=== PATIENT | female | born 1990 | race Caucasian/White ===

== ENCOUNTER 2017-04-02 17:34 | Emergency (ER) | payer BC, SELFPAY | END 2017-04-02 19:10 | disposition home or self-care (01) | PROVIDERS: Emergency Provider Nurse Practitioner Family; Visit Provider Nurse Practitioner Family | DX: J20.9 Acute bronchitis, unspecified (principal); F17.210 Nicotine dependence, cigarettes, uncomplicated; K21.9 Gastro-esophageal reflux disease without esophagitis; Z88.0 Allergy status to penicillin | CPT/HCPCS: 87804; 96372; 99201 ==

== ENCOUNTER → 2017-05-15 10:46 | Outpatient (CLI) | payer BC, SELFPAY ==
--- NOTE | 2017-05-15 11:02 | XR_ITS ---
XR knee RT 4V HISTORY: ITS.REASON: knee pain ORDERING PHYSICIAN: Nadeen Mendoza PATIENT AGE: 26 years COMPARISON: None FINDINGS: No fracture or dislocation. No lytic or blastic change. Normal mineralization. No significant arthritic changes evident. There is a small area of sclerosis involving the distal shaft of the femur medially which could be due to small bone island. This measures 8 mm. IMPRESSION: 1. No acute finding. 2. Possible small bone island femur medially at the distal diaphysis
[2017-05-15 11:07] LABS: Basophils # 0.1 K/mm3 (0-0.2); Basophils % 0.8 % (0.1-2.0); Eosinophils # 0.4 K/mm3 (0.0-0.4); Eosinophils % 6.2 % (0.1-12.0); Hemoglobin 15.7 g/dL (12.2-16.2); Lymphocytes # 2.2 K/mm3 (0.7-4.5); Lymphocytes % 31.1 K/mm3 (10-50); Mean Corpuscular HGB Conc 33.5 g/dL (31.8-35.4); Mean Corpuscular Hemoglobin 29.2 pg (27.0-31.2); Mean Corpuscular Volume 87.1 fl (81-99); Mean Platelet Volume 7.5 fl (7.4-10.4); Monocytes # 0.4 K/mm3 (0.1-1.0); Monocytes % 5.1 % (1.7-9.3); Neutrophils % 56.9 % (37.0-80.0); Platelet Count 278 K/mm3 (142-424); Red Blood Count 5.39 M/mm3 (4.20-5.40); Red Cell Distribution Width 12.1 % (11.5-17.5)
[2017-05-15 13:10] LABS: Alanine Aminotransferase 25 U/L (12-78); Albumin Level 4.2 gm/dL (3.4-5.0); Albumin/Globulin Ratio 1.2 (1.1-1.8); Alkaline Phosphatase 77 U/L (46-116); Aspartate Amino Transferase 15 U/L (15-37); Bilirubin,Total 0.3 mg/dL (0.2-1.0); Blood Urea Nitrogen 8 mg/dL (7-18); Calcium 8.9 mg/dL (8.5-10.1); Carbon Dioxide 26 mmol/L (21.0-32.0); Chloride 104 mmol/L (98-107); Chol/HDL Ratio 4.4 (1-3.5); Cholesterol 233 mg/dL (140-200); Creatinine,Serum 0.71 mg/dL (0.55-1.02); Estimated Glomerular Filt Rate 100 ml/min (>60); GFR (African American) 120 ML/MIN (>60); Globulin 3.4 gm/dl (1.3-3.2); Glucose 86 mg/dL (74-106); HDL Cholesterol 53 mg/dL (29-89); LDL Cholesterol 159 mg/dL (0-130); Sodium 142 mmol/L (136-145); T4 (Thyroxine) 11.6 ug/dl (4.7-13.3); Thyroid Stimulating Hormone 1.27 uIU/ml (0.358-3.740); Total Protein,Serum 7.6 gm/dL (6.4-8.2); Triglycerides 103 mg/dL (30-200); VLDL Cholesterol 21 mg/dL (0-40)
[2017-05-16 09:17] LABS: Hep A Ab, IgM Negative (Negative); Hepatitis B Core Antibody IgM Negative (Negative); Hepatitis B Surface Antigen Negative (Negative)
[2017-05-16 17:10] LABS: Vitamin D 25 Hydroxy 30.8 ng/mL (30.0-100.0)
[2017-05-16 17:11] LABS: Hepatitis C Antibody <0.1 s/co ratio (0.0-0.9)
== END ==
PROVIDERS: PCP Nurse Practitioner Family; Visit Provider Nurse Practitioner Family
DX: R53.83 Other fatigue (principal); Z20.5 Contact with and (suspected) exposure to viral hepatitis; M25.561 Pain in right knee; Z86.79 Personal history of other diseases of the circulatory system
CPT/HCPCS: 36415; 73564; 80053; 80061; 80074; 82652; 84436; 84443; 85025

== ENCOUNTER → 2017-06-09 08:13 | Outpatient (CLI) | payer BC, SELFPAY ==
--- NOTE | 2017-06-09 | CA_ITS ---
PROCEDURE: 2-D M-mode and color Doppler study INDICATIONS FOR THE TEST: Chest pain X COPD Heart Murmur Tobacco SmokingX Palpitations Fatigue Syncope Edema Hypertension Diabetes Mellitus Rheumatic Fever SOBXDOEXObesity Hyperlipidemia Family History HDX Additional History MVP,DIZZINESS PATIENT INFORMATION HEIGHT: 69 WEIGHT:127 GENDER: Female B/P:116/80 2-D/M-MODE INTERPRETATION: 2-D MEASUREMENTS OBSERVED VALUES IN CMS Right Ventricular Dimension (RVDd) 2.3 Interventricular Septum (Thickness)(IVsd) .7 Left Ventricular Internal Dimensions(LVIDd) 4.4 Left Ventricular Posterior Wall (Thickness)(LVPWd) .8 Aortic Root 2.6 Aortic Cusp Separation 2.0 Left Atrial Dimensions (LAD) 2.4 2D 1. Left atrium is normal size, left ventricle is normal size, there is no concentric left ventricular hypertrophy, visually estimated ejection fraction 55% with no obvious regional wall motion abnormality. 2. The right atrium and right ventricle are normal size and contractility. 3. The aortic, mitral and tricuspid valve are grossly normal. 4. The pulmonic valve is poorly visualized 5. No significant pericardial effusion noted DOPPLER INTERROGATION: Doppler interrogation of the aortic, mitral and tricuspid valvular presence of mild mitral and tricuspid regurgitation, tricuspid and jet velocity insufficient for calculation of the right ventricular systolic pressure. Diastolic parameters are within normal range. CONCLUSION: 1. Normal left ventricular size, preserved left ventricular systolic function, visually estimated ejection fraction 55% with no obvious regional wall motion abnormality, diastolic parameters are within normal range. 2. Mild mitral and tricuspid regurgitation 3. No significant pericardial effusion noted.
== END ==
PROVIDERS: PCP Nurse Practitioner Family; Visit Provider Internal Medicine Cardiovascular Disease
DX: F17.200 Nicotine dependence, unspecified, uncomplicated (principal); Z82.49 Family history of ischemic heart disease and other diseases of the circulatory system; R00.0 Tachycardia, unspecified; I34.1 Nonrheumatic mitral (valve) prolapse; R06.09 Other forms of dyspnea; R07.89 Other chest pain; R07.8 Other chest pain
CPT/HCPCS: 93306

== ENCOUNTER 2017-06-12 17:41 | Emergency (ER) | payer BC, SELFPAY ==
[2017-06-12 18:23] VITALS: BP 130/84; PULSE 86; RESP 18; TEMP 37.1; O2SAT 99; BMI 18.7
[2017-06-12 18:31] LABS: UTC Strep Screen (Rapid) Negative (Negative)
--- NOTE | 2017-06-12 19:48 | HMH.EDUTC ---
[facility] [place] Impression: Viral pharyngitis Disposition: Home, Self-Care Condition on Discharge: Good Instructions: DI for Viral Pharyngitis Additional Instructions: * No sign of bacterial infection. Likely viral. Virus can take 7-14 days to run their course * Monitor Temp. Follow up if fever develops * Encourage fluids, water, gatorade, powerade, pedialyte if infant/toddler/child * warm salt water gargles * warm fluids * sore throat lozenges * sleep elevated * humidifier/vaporizer * * Your throat swab was sent for culture. Those results are typically sent to your primary care. Be sure to follow up in 2-3 days if no improvement so they can review those results and treat if necessary. If you don't have primary care, I recommend you get one but in the mean time, you will have to return to a walk in clinic. Referrals: Nadeen Mendoza APRN [Primary Care Provider] - (Follow up IMMEDIATELY for new or worsening symptoms OR no noticeable improvement over the next 48-72 hours. 911 for difficulty breathing or swallowing.) Time of Disposition: 19:52 Medical Decision Making Vital Signs: 06/12/17 18:23 Temperature 98.7 F Temperature Source Temporal Artery Scan Pulse Rate [Brachial] 86 Respiratory Rate 18 Blood Pressure [Right Arm] 130/84 Blood Pressure Mean [Right Arm] 99 Blood Pressure Source [Right Arm] Automatic Cuff Blood Pressure Position [Right Arm] Sitting 02 Sat by Pulse Oximetry 99 Oxygen Delivery Method Room Air - Lab Data Lab results reviewed: Yes: I reviewed the patient's lab results. Lab Results 06/12/17 18:26: Strep Scn Rapid Clinic Negative Orders (Tests/Meds): ORDERS Category Date Time Status Strep Screen Confirmation Stat Micro 06/12/17 18:26 Received - Bry Inquiry Pt receiving controlled substance: No [facility] [place] - General Stated complaint: sore throat,cough Time Seen by Provider: 06/12/17 19:48 Mode of Arrival: Ambulatory Source of Information: Patient Limitations: No Limitations Description of Symptoms (Recalled from Triage Doc. by RN): SORE THROAT AND HEADACHE SINCE LAST NIGHT HEENT Symptoms (Recalled from RN notes): Yes Resp Symptoms (Recalled from RN notes): No Skin Symptoms (Recalled from RN notes): No MS Symptoms (Recalled from RN notes): No Functional Status (Recalled from RN notes): NA - History of Present Illness Provider Complaint: c/o ST and [employer] since last night. Wants to r/o strep because daughter with it. No fever. No treatment before arrival. - Related Data Home Medications Medication Instructions Recorded Confirmed L norgest/E estradiol-E estrad 1 tab PO DAILY tab 05/15/17 0.10 mg-20 mcg (84)/10 mcg(7) tabs,3mos hydroxyzine HCl 10 mg tablet 10 mg PO Q6H PRN tab 05/15/17 Previous Rx's Medication Instructions Recorded bisoprolol fumarate 5 mg tablet 2.5 mg PO DAILY #30 tab 05/29/17 omeprazole 40 mg capsule,delayed 40 mg PO DAILY #30 cap 05/29/17 release Allergies Allergy/AdvReac Type Severity Reaction Status Date / Time azithromycin [From ZITHROMAX] Allergy Unknown Verified 05/15/17 09:31 Penicillins [PENICILLINS] Allergy Unknown Verified 05/15/17 09:31 - Worker's Comp Is this a Worker's Comp case?: No [facility] History I have reviewed the patient's past medical history: Yes Medical History: Reports:: Anxiety, Arrhythmia (tachycardia), Gastroesophageal Reflux Disease(GERD) Other Medical History: Reports: Thyroid Disease, Other Laterality Cases: Bilateral: Myringotomy (Ear Tubes) Other Surgeries: Yes: Colonoscopy, EGD, Other Amputation: No Fractures: No - Social History Smoking Status: Current every day smoker Tobacco Type: cigarettes # Packs/Day (cigarettes): 1 Alcohol Intake: never Alcohol Intake Frequency:: holidays/special occasions only Substance Use Type: denies use - Psychiatric History Expresses thoughts of harming self/others: None Suicide Plan Description: No Plan Pschychiatric History:: R
--- NOTE | 2017-06-12 19:52 | ED_ITS ---
[facility] [place] Clinical Impression: Viral pharyngitis Disposition: Home, Self-Care Condition on Discharge: Good Instructions: DI for Viral Pharyngitis Additional Instructions: * No sign of bacterial infection. Likely viral. Virus can take 7-14 days to run their course * Monitor Temp. Follow up if fever develops * Encourage fluids, water, gatorade, powerade, pedialyte if infant/toddler/ child * warm salt water gargles * warm fluids * sore throat lozenges * sleep elevated * humidifier/vaporizer * * Your throat swab was sent for culture. Those results are typically sent to your primary care. Be sure to follow up in 2-3 days if no improvement so they can review those results and treat if necessary. If you don't have primary care , I recommend you get one but in the mean time, you will have to return to a walk in clinic. Referrals: Nadeen Mendoza APRN [Primary Care Provider] - (Follow up IMMEDIATELY for new or worsening symptoms OR no noticeable improvement over the next 48-72 hours. 911 for difficulty breathing or swallowing.) Time of Disposition: 19:52 Medical Decision Making Vital Signs: 06/12/17 18:23 Temperature 98.7 F Temperature Source Temporal Artery Scan Pulse Rate [Brachial] 86 Respiratory Rate 18 Blood Pressure [Right Arm] 130/84 Blood Pressure Mean [Right Arm] 99 Blood Pressure Source [Right Arm] Automatic Cuff Blood Pressure Position [Right Arm] Sitting 02 Sat by Pulse Oximetry 99 Oxygen Delivery Method Room Air - Lab Data Lab results reviewed: Yes: I reviewed the patient's lab results. Lab Results 06/12/17 18:26: Strep Scn Rapid Clinic Negative Orders (Tests/Meds): ORDERS Category Date Time Status Strep Screen Confirmation Stat Micro 06/12/17 18:26 Received - Bry Inquiry Pt receiving controlled substance: No [facility] [place] HPI - General Stated complaint: sore throat,cough Time Seen by Provider: 06/12/17 19:48 Mode of Arrival: Ambulatory Source of Information: Patient Limitations: No Limitations Description of Symptoms (Recalled from Triage Doc. by RN): SORE THROAT AND HEADACHE SINCE LAST NIGHT HEENT Symptoms (Recalled from RN notes): Yes Resp Symptoms (Recalled from RN notes): No Skin Symptoms (Recalled from RN notes): No MS Symptoms (Recalled from RN notes): No Functional Status (Recalled from RN notes): NA - History of Present Illness Provider Complaint: c/o ST and [employer] since last night. Wants to r/o strep because daughter with it. No fever. No treatment before arrival. - Related Data Home Medications Medication Instructions Recorded Confirmed L norgest/E estradiol-E estrad 1 tab PO DAILY tab 05/15/17 0.10 mg-20 mcg (84)/10 mcg(7) tabs,3mos hydroxyzine HCl 10 mg tablet 10 mg PO Q6H PRN tab 05/15/17 Previous Rx's Medication Instructions Recorded bisoprolol fumarate 5 mg tablet 2.5 mg PO DAILY #30 tab 05/29/17 omeprazole 40 mg capsule,delayed 40 mg PO DAILY #30 cap 05/29/17 release Allergies Allergy/AdvReac Type Severity Reaction Status Date / Time azithromycin [From ZITHROMAX] Allergy Unknown Verified 05/15/17 09:31 Penicillins [PENICILLINS] Allergy Unknown Verified 05/15/17 09:31 - Worker's Comp Is this a Worker's Comp case?: No [facility] History I have reviewed
[2017-06-12 20:00] VITALS: BP 130/84; PULSE 86; RESP 18; TEMP 37.1; O2SAT 99
== END 2017-06-12 20:02 | disposition home or self-care (01) ==
PROVIDERS: Emergency Provider Nurse Practitioner Family; PCP Nurse Practitioner Family
DX: J02.9 Acute pharyngitis, unspecified (principal); K21.9 Gastro-esophageal reflux disease without esophagitis; Z88.0 Allergy status to penicillin; F17.210 Nicotine dependence, cigarettes, uncomplicated
CPT/HCPCS: 87880; 99202

== ENCOUNTER 2017-06-27 11:07 | Emergency (ER) | payer BC, SELFPAY ==
[2017-06-27 11:19] VITALS: BP 128/84; PULSE 100; RESP 20; TEMP 36.6; O2SAT 99; BMI 19.2
--- NOTE | 2017-06-27 11:30 | HMH.EDUTC ---
[facility] [place] Disposition Clinical Impression: Upper respiratory infection Qualifiers: URI type: unspecified URI Qualified Code(s): J06.9 - Acute upper respiratory infection, unspecified Disposition: Home, Self-Care Condition on Discharge: Good Instructions: DI for Cough -- Adult, Sinusitis Additional Instructions: * Monitor Temp. Tylenol and/or Ibuprofen as needed. ER if fever is no less than 101 despite alternating Tylenol and Ibuprofen * Encourage fluids, water, Gatorade, powerade, pedialyte if /toddler/or child * Warm salt water gargles for throat irritation *Warm fluids *Sore throat lozenges *Sleep elevated *humidifier or vaporizer Lots of rest Increase fluids, water, Gatorade, powerade *Flonase 2 sprays each nostril daily but may take 2-3 days to notice improvement with it Follow up IMMEDIATELY for new or worsening of symptoms OR no noticeable improvement over the next 48-72 hours. 911 immediately for any life threatening symptoms such as chest pain or difficulty breathing Prescriptions: Promethazine/Dextromethorphan [Promethazine-Dm Syrup] 5 ml PO Q4HP PRN #350 ml MDD 30ML/DAY PRN Reason: Cough Albuterol Sulfate [Albuterol HFA Inhaler] 2 puffs IH Q6HP PRN #1 inh PRN Reason: Shortness Of Breath Or Wheezing Cefdinir [Omnicef 300mg Capsule] 300 mg PO BID #20 cap Fluticasone Propionate [Flonase 50mcg nasal spray 16gm] 2 spr NS DAILY #1 bottle predniSONE [Prednisone 5mg Tab Dose-Pack] 5 mg PO UD DOSE PK #21 pack Referrals: Nadeen Mendoza APRN [Primary Care Provider] - Time of Disposition: 12:30 Medical Decision Making - Medical Records Medical records reviewed: Yes: I reviewed the patient's medical records. - Bry Inquiry Pt receiving controlled substance: No Bry was queried for this patient: No Vital Signs: 06/27/17 11:19 Temperature 97.9 F Temperature Source Temporal Artery Scan Pulse Rate [Right] 100 H Respiratory Rate 20 Blood Pressure [Right Arm] 128/84 Blood Pressure Mean [Right Arm] 98 Blood Pressure Source [Right Arm] Automatic Cuff Blood Pressure Position [Right Arm] Sitting 02 Sat by Pulse Oximetry 99 Oxygen Delivery Method Room Air - Lab Data Lab Results 06/27/17 11:29: Influenza Type A Ag Negative, Influenza Type B Ag Negative 06/27/17 11:30: Tst Clinic Negative Orders (Tests/Meds): ORDERS Category Date Time Status Chest XR 2 view (NOT portable) [XR chest 2V] Stat Exams 06/27/17 11:55 Taken - Radiology Data #1 Image(s): Chest Image Reviewed: Yes I reviewed the patient's radiology image - Reevaluation(s) Time: 12:28 Reevaluation #1: Patient state that she is allergic to Penicillins but can take Cephosporins without reaction or problems [facility] [place] HPI - General Stated complaint: SOA, congestion Time Seen by Provider: 06/27/17 11:35 Mode of Arrival: Ambulatory Source of Information: Patient Limitations: No Limitations Description of Symptoms (Recalled from Triage Doc. by RN): cough, ear ache HEENT Symptoms (Recalled from RN notes): Yes Resp Symptoms (Recalled from RN notes): No Skin Symptoms (Recalled from RN notes): No MS Symptoms (Recalled from RN notes): No Functional Status (Recalled from RN notes): N - History of Present Illness Provider Complaint: Patient state that she has been having sinus pain and pressure along with flu like symptoms for over a week States that she has had cough, nasal congestion, sore throat and body aches State that she thought it may be allergies so she has been taking sudafed and claritin but not helping and symptoms have continued to get worse. - Related Data Home Medications Medication Instructions Recorded Confirmed L norgest/E estradiol-E estrad 1 tab PO DAILY tab 05/15/17 0.10 mg-20 mcg (84)/10 mcg(7) tabs,3mos hydroxyzine HCl 10 mg tablet 10 mg PO Q6H PRN tab 05/15/17 Previous Rx's Medication Instructions Recorded omeprazole 40 mg capsule,delayed 40 mg PO DAILY #30 ca
--- NOTE | 2017-06-27 11:34 | ED_ITS ---
[facility] [place] Clinical Impression: Upper respiratory infection Qualifiers: URI type: unspecified URI Qualified Code(s): J06.9 - Acute upper respiratory infection, unspecified Disposition: Home, Self-Care Condition on Discharge: Good Instructions: DI for Cough -- Adult, Sinusitis Additional Instructions: * Monitor Temp. Tylenol and/or Ibuprofen as needed. ER if fever is no less than 101 despite alternating Tylenol and Ibuprofen * Encourage fluids, water, Gatorade, powerade, pedialyte if /toddler/or child * Warm salt water gargles for throat irritation *Warm fluids *Sore throat lozenges *Sleep elevated *humidifier or vaporizer Lots of rest Increase fluids, water, Gatorade, powerade *Flonase 2 sprays each nostril daily but may take 2-3 days to notice improvement with it Follow up IMMEDIATELY for new or worsening of symptoms OR no noticeable improvement over the next 48-72 hours. 911 immediately for any life threatening symptoms such as chest pain or difficulty breathing Prescriptions: Promethazine/Dextromethorphan [Promethazine-Dm Syrup] 5 ml PO Q4HP PRN #350 ml MDD 30ML/DAY PRN Reason: Cough Albuterol Sulfate [Albuterol HFA Inhaler] 2 puffs IH Q6HP PRN #1 inh PRN Reason: Shortness Of Breath Or Wheezing Cefdinir [Omnicef 300mg Capsule] 300 mg PO BID #20 cap Fluticasone Propionate [Flonase 50mcg nasal spray 16gm] 2 spr NS DAILY #1 bottle predniSONE [Prednisone 5mg Tab Dose-Pack] 5 mg PO UD DOSE PK #21 pack Referrals: Nadeen Mendoza APRN [Primary Care Provider] - Time of Disposition: 12:30 Medical Decision Making - Medical Records Medical records reviewed: Yes: I reviewed the patient's medical records. - Bry Inquiry Pt receiving controlled substance: No Bry was queried for this patient: No Vital Signs: 06/27/17 11:19 Temperature 97.9 F Temperature Source Temporal Artery Scan Pulse Rate [Right] 100 H Respiratory Rate 20 Blood Pressure [Right Arm] 128/84 Blood Pressure Mean [Right Arm] 98 Blood Pressure Source [Right Arm] Automatic Cuff Blood Pressure Position [Right Arm] Sitting 02 Sat by Pulse Oximetry 99 Oxygen Delivery Method Room Air - Lab Data Lab Results 06/27/17 11:29: Influenza Type A Ag Negative, Influenza Type B Ag Negative 06/27/17 11:30: Tst Clinic Negative Orders (Tests/Meds): ORDERS Category Date Time Status Chest XR 2 view (NOT portable) [XR chest 2V] Stat Exams 06/27/17 11:55 Taken - Radiology Data #1 Image(s): Chest Image Reviewed: Yes I reviewed the patient's radiology image - Reevaluation(s) Time: 12:28 Reevaluation #1: Patient state that she is allergic to Penicillins but can take Cephosporins without reaction or problems [facility] [place] - General Stated complaint: SOA, congestion Time Seen by Provider: 06/27/17 11:35 Mode of Arrival: Ambulatory Source of Information: Patient Limitations: No Limitations Description of Symptoms (Recalled from Triage Doc. by RN): cough, ear ache HEENT Symptoms (Recalled from RN notes): Yes Resp Symptoms (Recalled from RN notes): No Skin Symptoms (Recalled from RN notes): No MS Symptoms (Recalled from RN notes): No Functional Status (Recalled from RN notes): N - History of Present Illness Provider Complaint: Patient state that she has been having sinus pain and pressure along with flu like symptoms for over a week States that she has had
[2017-06-27 11:48] LABS: UTC Influenza A Antigen Negative (Negative); UTC Influenza B Antigen Negative (Negative)
[2017-06-27 11:48] LABS: UTC Pregnancy Test, Urine Negative (Negative)
--- NOTE | 2017-06-27 11:55 | XR_ITS ---
XR chest 2V HISTORY: ITS.REASON: congestion ORDERING PHYSICIAN: Joycelyn Wilkerson PATIENT AGE: 26 years COMPARISON: 04/25/2011 FINDINGS: The cardiomediastinal silhouette and pulmonary vascularity are within normal limits. The lungs are clear without infiltrates, suspicious nodules, or pleural effusions. No acute bony abnormalities. IMPRESSION: Negative chest, no acute finding
[2017-06-27 12:26] VITALS: BP 128/84; PULSE 90; RESP 20; TEMP 36.6
== END 2017-06-27 12:39 | disposition home or self-care (01) ==
PROVIDERS: Emergency Provider Nurse Practitioner; PCP Nurse Practitioner Family
DX: J06.9 Acute upper respiratory infection, unspecified (principal); K21.9 Gastro-esophageal reflux disease without esophagitis; F41.9 Anxiety disorder, unspecified; F17.200 Nicotine dependence, unspecified, uncomplicated
CPT/HCPCS: 71046; 81025; 87804; 99202

== ENCOUNTER 2017-06-30 21:36 | Emergency (ER) | payer BC, SELFPAY ==
[2017-06-30 21:37] VITALS: BP 154/101; PULSE 111; RESP 18; TEMP 36.6; O2SAT 99; BMI 19.2
--- NOTE | 2017-06-30 21:44 | XR_ITS ---
XR chest 2V HISTORY: ITS.REASON: chest pain ORDERING PHYSICIAN: Олег Sánchez MD PATIENT AGE: 26 years COMPARISON: None available FINDINGS: The cardiomediastinal silhouette and pulmonary vascularity are within normal limits. The lungs are clear without infiltrates, suspicious nodules, or pleural effusions. No acute bony abnormalities. IMPRESSION: Negative chest, no acute finding
[2017-06-30 21:58] LABS: Basophils % 0.2 % (0.1-2.0); Eosinophils # 0.2 K/mm3 (0.0-0.4); Eosinophils % 1.6 % (0.1-12.0); Hematocrit 47.8 % (37.0-47.0); Hemoglobin 16.2 g/dL (12.2-16.2); Lymphocytes # 1.7 K/mm3 (0.7-4.5); Lymphocytes % 13.5 K/mm3 (10-50); Mean Corpuscular HGB Conc 33.9 g/dL (31.8-35.4); Mean Corpuscular Hemoglobin 29.7 pg (27.0-31.2); Mean Corpuscular Volume 87.7 fl (81-99); Mean Platelet Volume 7.8 fl (7.4-10.4); Monocytes # 0.7 K/mm3 (0.1-1.0); Monocytes % 5.2 % (1.7-9.3); Neutrophils % 79.5 % (37.0-80.0); Platelet Count 329 K/mm3 (142-424); Red Blood Count 5.46 M/mm3 (4.20-5.40); Red Cell Distribution Width 12.1 % (11.5-17.5); White Blood Count 12.6 K/mm3 (4.8-10.8)
[2017-06-30 22:14] VITALS: BP 135/77; PULSE 89; RESP 16; TEMP 36.6; O2SAT 99
[2017-06-30 22:31] LABS: Alanine Aminotransferase 23 U/L (12-78); Albumin Level 3.9 gm/dL (3.4-5.0); Albumin/Globulin Ratio 1.1 (1.1-1.8); Alkaline Phosphatase 83 U/L (46-116); Anion Gap 14.5 mEq/L (5-15); Aspartate Amino Transferase 15 U/L (15-37); Bilirubin,Total 0.1 mg/dL (0.2-1.0); Blood Urea Nitrogen 11 mg/dL (7-18); CKMB Relative Index 1.2 U/L (0-4.0); Calcium 8.9 mg/dL (8.5-10.1); Carbon Dioxide 25 mmol/L (21.0-32.0); Chloride 102 mmol/L (98-107); Creatine Kinase 41 U/L (26-192); Creatine Kinase MB < 0.5 ng/ml (0.0-3.6); Creatinine Clearance Estimated 87 mL/min (0-300); Creatinine,Serum 0.91 mg/dL (0.55-1.02); Estimated Glomerular Filt Rate 75 ml/min (>60); GFR (African American) 90 ML/MIN (>60); Globulin 3.7 gm/dl (1.3-3.2); Glucose 152 mg/dL (74-106); Potassium 3.5 mmoL/L (3.5-5.1); Sodium 138 mmol/L (136-145); Total Protein,Serum 7.6 gm/dL (6.4-8.2); Troponin I < 0.02 ng/ml (0.00-0.06)
[2017-06-30 22:59] LABS: D-Dimer < 100 (0-400)
[2017-06-30 23:00] VITALS: BP 120/82; PULSE 89; RESP 14; O2SAT 97
--- NOTE | 2017-06-30 23:21 | HMH.EDCP ---
ED Disposition Clinical Impression: Atypical chest pain, Mitral valve prolapse Disposition: Home, Self-Care Condition on Discharge: Good Instructions: DI for Atypical Chest Pain Additional Instructions: see card in am Referrals: Nadeen Mendoza APRN [Primary Care Provider] - - Critical Care Critical Care Time: No Attestation: On 06/30/17, the high probability of a clinically significant, sudden or life threatening deterioration of the following system(s) required my full and direct attention, intervention and personal management. The time I documented below is in addition to time spent performing reported procedures but includes the following listed in this critical care notation. Medical Decision Making - Medical Records Medical records reviewed: Yes: I reviewed the patient's medical records. - Bry Inquiry Pt receiving controlled substance: No Vital Signs: 06/30/17 21:37 06/30/17 22:14 06/30/17 23:00 Temperature 97.9 F 97.9 F Temperature Source Oral Oral Pulse Rate [Right Radial] 111 H 89 89 Respiratory Rate 18 16 14 Blood Pressure [Right Arm] 154/101 135/77 120/82 Blood Pressure Mean [Right Arm] 118 96 94 Blood Pressure Source [Right Arm] Automatic Cuff Automatic Cuff Automatic Cuff Blood Pressure Position [Right Arm] Sitting Sitting Sitting 02 Sat by Pulse Oximetry 99 99 97 Oxygen Delivery Method Room Air Room Air Room Air - Lab Data Lab results reviewed: Yes: I reviewed the patient's lab results. Lab Results 06/30/17 21:44: WBC 12.6 H, RBC 5.46 H, Hgb 16.2, Hct 47.8 H, MCV 87.7, MCH 29.7, MCHC 33.9, RDW 12.1, Plt Count 329, MPV 7.8, Neut % (Auto) 79.5, Lymph % (Auto) 13.5, [place] % (Auto) 5.2, Eos % (Auto) 1.6, Baso % (Auto) 0.2, Neut # (Auto) 10.0 H, Lymph # (Auto) 1.7, [place] # (Auto) 0.7, Eos # (Auto) 0.2, Baso # (Auto) 0.0 06/30/17 21:44: Sodium 138, Potassium 3.5, Chloride 102, Carbon Dioxide 25, Anion Gap 14.5, BUN 11, Creatinine 0.91, Estimated Creat Clear 87, Estimated GFR 75, Est GFR ( Amer) 90, Glucose 152 H, Calcium 8.9, Total Bilirubin 0.1 L, AST 15, ALT 23, Alkaline Phosphatase 83, Total Creatine Kinase 41, CK-MB (CK-2) < 0.5, CK-MB (CK-2) Rel Index 1.2, Troponin I < 0.02, Total Protein 7.6, Albumin 3.9, Globulin 3.7 H, Albumin/Globulin Ratio 1.1 06/30/17 21:44: D-Dimer < 100 Result diagrams: 06/30/17 21:44 06/30/17 21:44 Orders (Tests/Meds): ED MEDICATIONS Discontinued Medications Generic Name Dose Route Start Last Admin Trade Name Freq PRN Reason Stop Dose Admin Aspirin 243 mg 06/30/17 21:45 06/30/17 21:59 Aspirin 81mg Chewable Tablet PO 06/30/17 21:46 243 mg ONCE ONE Administration Ketorolac Tromethamine 30 mg 06/30/17 22:28 06/30/17 22:35 Toradol 30mg/Ml Vial IV 06/30/17 22:29 30 mg ONCE ONE Administration ORDERS Category Date Time Status Chest XR 2 view (NOT portable) [XR chest 2V] Stat Exams 06/30/17 21:44 Taken ECG Request by /Gavin Stat Y 06/30/17 21:44 Ordered - Radiology Data #1 Image(s): Chest Image Reviewed: Yes I reviewed the patient's radiology image Preliminary Findings: Normal/NAD - ECG Data Tracing #1 I reviewed this ECG and interpreted as documented below: Normal Sinus Rhythm: Yes Ischemic changes: non-specific ST-T wave changes Chest Pain HPI - General Chief Complaint: Chest Pain Stated Complaint: chest pain Time Seen by Provider: 06/30/17 23:21 Mode of Arrival: Ambulatory Source of Information: Patient, Parent(s), Medical Record Limitations: No Limitations Description of Symptoms (Recalled from ER Triage Doc. by RN): Pt reports chest pain that travels down her left arm, difficulty breating and just doesn't feel right. - History of Present Illness HPI narrative: acute onset of ant chest pain with rad to face and felt dizzyness MD complaint: chest pain Onset (ago): hour(s) Duration: now resolved Pain location: left chest Severity: moderate Quality: sharp Pain radi
--- NOTE | 2017-06-30 23:24 | ED_ITS ---
ED Disposition Clinical Impression: Atypical chest pain, Mitral valve prolapse Disposition: Home, Self-Care Condition on Discharge: Good Instructions: DI for Atypical Chest Pain Additional Instructions: see card in am Referrals: Nadeen Mendoza APRN [Primary Care Provider] - - Critical Care Critical Care Time: No Attestation: On 06/30/17, the high probability of a clinically significant, sudden or life threatening deterioration of the following system(s) required my full and direct attention, intervention and personal management. The time I documented below is in addition to time spent performing reported procedures but includes the following listed in this critical care notation. Medical Decision Making - Medical Records Medical records reviewed: Yes: I reviewed the patient's medical records. - Bry Inquiry Pt receiving controlled substance: No Vital Signs: 06/30/17 21:37 06/30/17 22:14 06/30/17 23:00 Temperature 97.9 F 97.9 F Temperature Source Oral Oral Pulse Rate [Right Radial] 111 H 89 89 Respiratory Rate 18 16 14 Blood Pressure [Right Arm] 154/101 135/77 120/82 Blood Pressure Mean [Right Arm] 118 96 94 Blood Pressure Source [Right Arm] Automatic Cuff Automatic Cuff Automatic Cuff Blood Pressure Position [Right Arm] Sitting Sitting Sitting 02 Sat by Pulse Oximetry 99 99 97 Oxygen Delivery Method Room Air Room Air Room Air - Lab Data Lab results reviewed: Yes: I reviewed the patient's lab results. Lab Results 06/30/17 21:44: WBC 12.6 H, RBC 5.46 H, Hgb 16.2, Hct 47.8 H, MCV 87.7, MCH 29.7 , MCHC 33.9, RDW 12.1, Plt Count 329, MPV 7.8, Neut % (Auto) 79.5, Lymph % (Auto ) 13.5, [place] % (Auto) 5.2, Eos % (Auto) 1.6, Baso % (Auto) 0.2, Neut # (Auto) 10.0 H, Lymph # (Auto) 1.7, [place] # (Auto) 0.7, Eos # (Auto) 0.2, Baso # (Auto) 0.0 06/30/17 21:44: Sodium 138, Potassium 3.5, Chloride 102, Carbon Dioxide 25, Anion Gap 14.5, BUN 11, Creatinine 0.91, Estimated Creat Clear 87, Estimated GFR 75, Est GFR ( Amer) 90, Glucose 152 H, Calcium 8.9, Total Bilirubin 0.1 L, AST 15, ALT 23, Alkaline Phosphatase 83, Total Creatine Kinase 41, CK-MB (CK-2) < 0.5, CK-MB (CK-2) Rel Index 1.2, Troponin I < 0.02, Total Protein 7.6, Albumin 3.9, Globulin 3.7 H, Albumin/Globulin Ratio 1.1 06/30/17 21:44: D-Dimer < 100 Result diagrams: 06/30/17 21:44 06/30/17 21:44 Orders (Tests/Meds): ED MEDICATIONS Discontinued Medications Generic Name Dose Route Start Last Admin Trade Name Freq PRN Reason Stop Dose Admin Aspirin 243 mg 06/30/17 21:45 06/30/17 21:59 Aspirin 81mg Chewable Tablet PO 06/30/17 21:46 243 mg ONCE ONE Administration Ketorolac Tromethamine 30 mg 06/30/17 22:28 06/30/17 22:35 Toradol 30mg/Ml Vial IV 06/30/17 22:29 30 mg ONCE ONE Administration ORDERS Category Date Time Status Chest XR 2 view (NOT portable) [XR chest 2V] Stat Exams 06/30/17 21:44 Taken ECG Request by /Gavin Stat Y 06/30/17 21:44 Ordered - Radiology Data #1 Image(s): Chest Image Reviewed: Yes I reviewed the patient's radiology image Preliminary Findings: Normal/NAD - ECG Data Tracing #1 I reviewed this ECG and interpreted as documented below: Normal Sinus Rhythm: Yes Ischemic changes: non-specific ST-T wave changes Chest Pain HPI -
[2017-06-30 23:34] VITALS: BP 121/81; PULSE 85; RESP 16; TEMP 36.7; O2SAT 99
== END 2017-06-30 23:34 | disposition home or self-care (01) ==
PROVIDERS: Emergency Provider Emergency Medicine; PCP Nurse Practitioner Family
DX: R07.89 Other chest pain (principal); I34.1 Nonrheumatic mitral (valve) prolapse; F41.9 Anxiety disorder, unspecified; E03.9 Hypothyroidism, unspecified; Z88.0 Allergy status to penicillin; Z88.1 Allergy status to other antibiotic agents
CPT/HCPCS: 71046; 80053; 82550; 82553; 84484; 85025; 85378; 93005; 96374; 99284

== ENCOUNTER 2017-07-04 13:11 | Observation (INO) | payer BC, SELFPAY ==
[2017-07-04] VITALS (7 sets, daily range): BP systolic 112–124; BP diastolic 74–87; PULSE 92–125; RESP 18–20; TEMP 36.5–37; O2SAT 96–99; BMI 18.7; BMI 18.6
--- NOTE | 2017-07-04 13:33 | XR_ITS ---
XR chest 2V HISTORY: ITS.REASON: SOB AND COUGH ORDERING PHYSICIAN: Олег Sánchez MD PATIENT AGE: 26 years COMPARISON: EXAM FINDINGS: The cardiomediastinal silhouette and pulmonary vascularity are within normal limits. The lungs are clear without infiltrates, suspicious nodules, or pleural effusions. No acute bony abnormalities. IMPRESSION: Negative chest, no acute finding
--- NOTE | 2017-07-04 13:34 | HMH.EDSOB ---
ED Disposition Clinical Impression: Acute dyspnea Disposition: Admitted as Observation Condition on Discharge: Good - Critical Care Critical Care Time: No Attestation: On , the high probability of a clinically significant, sudden or life threatening deterioration of the following system(s) required my full and direct attention, intervention and personal management. The time I documented below is in addition to time spent performing reported procedures but includes the following listed in this critical care notation. Medical Decision Making - Bry Inquiry Pt receiving controlled substance: No Bry was queried for this patient: No Vital Signs: 07/04/17 13:16 07/04/17 13:24 07/04/17 14:18 Temperature 98.6 F 98.6 F 98.3 F Temperature Source Temporal Artery Scan Temporal Artery Scan Oral Pulse Rate [Right Brachial] 125 H 125 H 105 H Respiratory Rate 20 20 18 Blood Pressure [Right Arm] 124/85 124/85 121/87 Blood Pressure Mean [Right Arm] 98 98 98 Blood Pressure Source [Right Arm] Automatic Cuff Automatic Cuff Automatic Cuff Blood Pressure Position [Right Arm] Sitting Sitting Supine 02 Sat by Pulse Oximetry 96 96 97 Oxygen Delivery Method Room Air Room Air Room Air - Lab Data Lab results reviewed: Yes: I reviewed the patient's lab results. Lab Results 07/04/17 13:50: WBC 9.9, RBC 5.57 H, Hgb 16.3 H, Hct 50.2 H, MCV 90.2, MCH 29.3, MCHC 32.5, RDW 12.3, Plt Count 328, MPV 7.7, Neut % (Auto) 65.5, Lymph % (Auto) 23.5, [place] % (Auto) 5.0, Eos % (Auto) 5.3, Baso % (Auto) 0.6, Neut # (Auto) 6.5, Lymph # (Auto) 2.3, [place] # (Auto) 0.5, Eos # (Auto) 0.5 H, Baso # (Auto) 0.1 07/04/17 13:50: Sodium 141, Potassium 3.5, Chloride 104, Carbon Dioxide 29, Anion Gap 11.5, BUN 9, Creatinine 0.83, Estimated Creat Clear 93, Estimated GFR 83, Est GFR ( Amer) 101, Glucose 97, Calcium 9.0, Total Bilirubin 0.2, AST 22, ALT 28, Alkaline Phosphatase 85, Total Protein 8.0, Albumin 3.8, Globulin 4.2 H, Albumin/Globulin Ratio 0.9 L 07/04/17 13:50: Lactic Acid 2.9 H Result diagrams: 07/04/17 13:50 07/04/17 13:50 Orders (Tests/Meds): ED MEDICATIONS Generic Name Dose Route Start Last Admin Trade Name Freq PRN Reason Stop Dose Admin Levofloxacin/Dextrose 500 mg in 100 mls @ 100 mls/hr 07/04/17 14:15 07/04/17 14:25 Levaquin 500mg/100ml Premix IV 07/18/17 14:14 100 mls/hr Q24H NUPUR Administration Protocol ORDERS Category Date Time Status Blood Culture Stat Micro 07/04/17 13:50 Received - Radiology Data #2 Image(s): Chest Image Reviewed: Yes I reviewed the patient's radiology image Preliminary Findings: Normal/NAD - Physician Consults Physician Consulted: RICKY Lipscomb Time: 13:49 Reason -: Admission Comment/Response: agreed admission appropriate Resp/SOB HPI - General Chief Complaint: Shortness of Breath/Dyspnea Stated Complaint: fever cough soa congested Time Seen by Provider: 07/04/17 13:40 Mode of Arrival: Ambulatory Source of Information: Patient Limitations: No Limitations Description of Symptoms (Recalled from ER Triage Doc. by RN): DX WITH PNEUMONIA YESTERDAY BY PCP AND GIVEN ROCE[facility]IN IM AND INSTRUCTED TO COME TO ED FOR POSSIBLE ADMISSION TODAY IF NO BETTER. C/O FEVER,SOB, COUGH AND WHEEZING - History of Present Illness MD Complaint: shortness of breath, cough Onset (ago): week(s) (1) Context: recent illness Severity: moderate Consistency/Duration: intermittent Relieving factors: nothing Exacerbating factors: nothing Known history of: other (smoker) Treatment prior to arrival: bronchodilator, other (antibiotics) - Related Data Home oxygen amount: none Home Medications Medication Instructions Recorded Confirmed L norgest/E estradiol-E estrad 1 tab PO DAILY tab 05/15/17 07/04/17 0.10 mg-20 mcg (84)/10 mcg(7) tabs,3mos hydroxyzine HCl 10 mg tablet 10 mg PO Q6H PRN tab 05/15/17 07/04/17 Previous Rx's Medication Instructions Recorded Promethazin
[2017-07-04 14:16] LABS: Alanine Aminotransferase 28 U/L (12-78); Albumin Level 3.8 gm/dL (3.4-5.0); Albumin/Globulin Ratio 0.9 (1.1-1.8); Alkaline Phosphatase 85 U/L (46-116); Anion Gap 11.5 mEq/L (5-15); Aspartate Amino Transferase 22 U/L (15-37); Bilirubin,Total 0.2 mg/dL (0.2-1.0); Blood Urea Nitrogen 9 mg/dL (7-18); Carbon Dioxide 29 mmol/L (21.0-32.0); Chloride 104 mmol/L (98-107); Creatinine Clearance Estimated 93 mL/min (0-300); Creatinine,Serum 0.83 mg/dL (0.55-1.02); Estimated Glomerular Filt Rate 83 ml/min (>60); GFR (African American) 101 ML/MIN (>60); Globulin 4.2 gm/dl (1.3-3.2); Glucose 97 mg/dL (74-106); Potassium 3.5 mmoL/L (3.5-5.1); Sodium 141 mmol/L (136-145)
[2017-07-04 14:18] LABS: Basophils # 0.1 K/mm3 (0-0.2); Basophils % 0.6 % (0.1-2.0); Eosinophils # 0.5 K/mm3 (0.0-0.4); Eosinophils % 5.3 % (0.1-12.0); Hematocrit 50.2 % (37.0-47.0); Hemoglobin 16.3 g/dL (12.2-16.2); Lymphocytes # 2.3 K/mm3 (0.7-4.5); Lymphocytes % 23.5 K/mm3 (10-50); Mean Corpuscular HGB Conc 32.5 g/dL (31.8-35.4); Mean Corpuscular Hemoglobin 29.3 pg (27.0-31.2); Mean Corpuscular Volume 90.2 fl (81-99); Mean Platelet Volume 7.7 fl (7.4-10.4); Monocytes # 0.5 K/mm3 (0.1-1.0); Neutrophils # 6.5 K/mm3 (1.8-7.8); Neutrophils % 65.5 % (37.0-80.0); Platelet Count 328 K/mm3 (142-424); Red Blood Count 5.57 M/mm3 (4.20-5.40); Red Cell Distribution Width 12.3 % (11.5-17.5); White Blood Count 9.9 K/mm3 (4.8-10.8)
[2017-07-04 14:20] LABS: Lactic Acid 2.9 mmol/L (0.4-2.0)
--- NOTE | 2017-07-04 17:38 | PC.NURSE ---
PATIENT IS A 26 YEAR OLD FEMALE ADMITTED TODAY FOR DYSPNEA , TO . PATIENT IS RESTING IN BED AT THIS TIME, DENIES ANY NEEDS. CALL HENRIQUEZ WITHIN REACH, WILL CONTINUE TO MONITOR.
[2017-07-04 17:59] LABS: Reflex Lactic Add Lactic Reflex
[2017-07-04 18:44] LABS: Lactic Acid Follow Up (RFLX 1) 1.5 (0.4-2.0)
--- NOTE | 2017-07-04 18:57 | PC.NURSE ---
REPORT GIVEN TO PAULINA GROSSMAN
[2017-07-05 04:06] VITALS: BP 111/74; PULSE 97; TEMP 36.6; O2SAT 97
--- NOTE | 2017-07-05 07:21 | PC.NURSE ---
REPORT GIVEN TO Cesar PAREDES W/C
[2017-07-05 07:52] VITALS: BP 113/76; PULSE 84; RESP 18; TEMP 36.7; O2SAT 96
[2017-07-05 08:14] LABS: Adenovirus,PCR Not Detected (NotDetected); Bordetella Pertussis Not Detected (NotDetected); Chlamydophila Pneumoniae, PCR Not Detected (NotDetected); Coronavirus 229E Not Detected (NotDetected); Coronavirus NL63 Not Detected (NotDetected); Coronavirus OC43 Not Detected (NotDetected); Coronovirus HKU1,PCR Not Detected (NotDetected); Human Metapneumovirus Not Detected (NotDetected); Influenza A, PCR Not Detected (NotDetected); Influenza AH1, 2009 Not Detected (NotDetected); Influenza AH1, PCR Not Detected (NotDetected); Influenza AH3,PCR Not Detected (NotDetected); Influenza B, PCR Not Detected (NotDetected); Mycoplasma Pneumoniae, PCR Not Detected (NotDected); Parainfluenza 1, PCR Not Detected (NotDetected); Parainfluenza 2, PCR Not Detected (NotDetected); Parainfluenza 3, PCR Not Detected (NotDetected); Parainfluenza 4, PCR Not Detected (NotDetected); Respiratory Syncytial Virus Not Detected (NotDetected)
--- NOTE | 2017-07-05 08:50 | HMH.HPDC ---
General - General Admission date: 07/04/17 Discharge date: 07/05/17 *Admission Date: 07/04/17 *Chief complaint: sob *History of present illness: this wf with ongoing resp sx of fnp cough and fever with no rash or gi sx- she has been on abx from [facility] and has been in the ed and pcp and returned to ed last pm with sob and some wheezing - she was admitted for ivf and abx - [facility] History I have reviewed the patient's past medical history: Yes Medical History: Reports:: Anxiety, Arrhythmia, Gastroesophageal Reflux Disease(GERD) Denies:: Cancer, Diabetes Mellitus Type 1, Diabetes Mellitus Type 2, Internal Pacemaker, MRSA Other Medical History: Reports: Thyroid Disease, Other Laterality Cases: Right: Arthroscopy Knee, Bilateral: Myringotomy (Ear Tubes) Other Surgeries: Yes: Colonoscopy, EGD, Other. No: Pacemaker Amputation: No Fractures: No - *Social History Educational Level: Attended College Smoking Status: Current every day smoker Tobacco Type: cigarettes # Packs/Day (cigarettes): 1 #Yrs smoked (if former smoker): 10 Alcohol Intake: never Alcohol Intake Frequency:: holidays/special occasions only Substance Use Type: denies use Occupational Status: unemployed Housing: house Household Members: family, children - Psychiatric History Expresses thoughts of harming self/others: None Suicide Plan Description: No Plan Pschychiatric History:: Reports:: Anxiety *Family Hx:: Hypertension, Heart Attack, Coronary Artery Disease Review of Systems - Review of Systems Review of systems:: pertinent systems reviewed and negative unless documented below - Constitutional Reports fever(s) - Eyes Denies change in vision - ENT Denies sore throat - *Cardiovascular Denies chest pain at rest - *Respiratory Reports cough, Denies coughing up blood - *Gastrointestinal Denies abdominal pain - *Genitourinary Denies blood in urine - *Musculoskeletal Denies joint pain, Denies joint swelling - Integumentary/Breasts Denies rash - *Neurologic Denies seizure-like activity - Psychiatric Denies thoughts of hurting/killing yourself Exam Vital signs and Labs for Last 24 Hours: Temp Pulse Resp BP Pulse Ox 98.1 F 84 18 113/76 96 07/05/17 07:52 07/05/17 07:52 07/05/17 07:52 07/05/17 07:52 07/05/17 07:52 Laboratory Results - last 24 hr 07/04/17 18:25: Lactic Acid Fup @ 4Hr 1.5 I & O for Last 24 hours: Intake & Output 07/02/17 07/03/17 07/04/17 07/05/17 11:59 11:59 11:59 11:59 Intake Total 720 / 720 Output Total 300 / 300 Balance 420 / 420 Weight 126 lb 6 oz - Constitutional no acute distress, thin - *Routine HEENT Exam Head: Present: normocephalic Eye: Present: EOMI, PERRL ENT: Present: mucous membranes dry - *Routine Neck Exam Present: supple. Absent: JVD - *Routine Respiratory Exam Present: CTA bilaterally. Absent: respiratory distress - *Routine Cardiovascular Exam Present: RRR. Absent: murmur, gallop, rubs - *Routine Abdominal Exam Present: soft - *Routine Extremities Exam Absent: full ROM - *Routine Skin Exam Present: intact - *Routine Neurological Exam Present: alert, oriented X3, CN II-XII intact - Routine Psychiatric Exam Present: normal affect Hospital Course Hospital Course: pt feels better this am with ivf and abx and will check upper resp panel and discussed tob use and will need ent and pul eval as op Results Labs on day of discharge: Labs from last 24 hours 07/04/17 18:25 Lactic Acid Fup @ 4Hr 1.5 DS: Diagnosis - Discharge Diagnosis (1) Bronchitis Status: Acute (2) Tobacco dependence Status: Acute (3) Low body mass index (BMI) Status: Acute Discharge Medications Discharge Medications: Home Medications Medication Instructions Recorded Confirmed Type L norgest/E estradiol-E estrad 1 tab PO DAILY tab 05/15/17 07/04/17 History 0.10 mg-20 mcg (84)/10 mcg(7) tabs,3mos hydroxy
--- NOTE | 2017-07-05 08:53 | P.HPDS_ITS ---
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 with no rash or gi sx- she has been on abx from [facility] and has been in the ed and pcp and returned to ed last pm with sob and some wheezing - she was admitted for ivf and abx - [facility] History I have reviewed the patient's past medical history: Yes Medical History: Reports:: Anxiety, Arrhythmia, Gastroesophageal Reflux Disease( GERD) Denies:: Cancer, Diabetes Mellitus Type 1, Diabetes Mellitus Type 2, Internal Pacemaker, MRSA Other Medical History: Reports: Thyroid Disease, Other Laterality Cases: Right: Arthroscopy Knee, Bilateral: Myringotomy (Ear Tubes) Other Surgeries: Yes: Colonoscopy, EGD, Other. No: Pacemaker Amputation: No Fractures: No - *Social History Educational Level: Attended College Smoking Status: Current every day smoker Tobacco Type: cigarettes # Packs/Day (cigarettes): 1 #Yrs smoked (if former smoker): 10 Alcohol Intake: never Alcohol Intake Frequency:: holidays/special occasions only Substance Use Type: denies use Occupational Status: unemployed Housing: house Household Members: family, children - Psychiatric History Expresses thoughts of harming self/others: None Suicide Plan Description: No Plan Pschychiatric History:: Reports:: Anxiety *Family Hx:: Hypertension, Heart Attack, Coronary Artery Disease Review of Systems - Review of Systems Review of systems:: pertinent systems reviewed and negative unless documented below - Constitutional Reports fever(s) - Eyes Denies change in vision - ENT Denies sore throat - *Cardiovascular Denies chest pain at rest - *Respiratory Reports cough, Denies coughing up blood - *Gastrointestinal Denies abdominal pain - *Genitourinary Denies blood in urine - *Musculoskeletal Denies joint pain, Denies joint swelling - Integumentary/Breasts Denies rash - *Neurologic Denies seizure-like activity - Psychiatric Denies thoughts of hurting/killing yourself Exam Vital signs and Labs for Last 24 Hours: Temp Pulse Resp BP Pulse Ox 98.1 F 84 18 113/76 96 07/05/17 07:52 07/05/17 07:52 07/05/17 07:52 07/05/17 07:52 07/05/17 07:52 Laboratory Results - last 24 hr 07/04/17 18:25: Lactic Acid Fup @ 4Hr 1.5 I & O for Last 24 hours: Intake & Output 07/02/17 07/03/17 07/04/17 07/05/17 11:59 11:59 11:59 11:59 Intake Total 720 / 720 Output Total 300 / 300 Balance 420 / 420 Weight 126 lb 6 oz - Constitutional no acute distress, thin - *Routine HEENT Exam Head: Present: normocephalic Eye: Present: EOMI, PERRL ENT: Present: mucous membranes dry - *Routine Neck Exam Present: supple. Absent: JVD - *Routine Respiratory Exam Present: CTA bilaterally. Absent: respiratory distress - *Routine Cardiovascular Exam Present: RRR. Absent: murmur, gallop, rubs - *Routine Abdominal Exam Present: soft - *Routine Extremities Exam Absent: full ROM - *Routine Skin Exam Present: intact - *Routine Neurological Exam Present: alert, oriented X3, CN II-XII intact - Routine Psychiatric Exam Present: normal affect Hospital Course Hospital Course: pt feels better this
[2017-07-05 09:41] LABS: Rhinovirus/Enterovirus Detected (NotDetected)
== END 2017-07-05 10:01 | disposition home or self-care (01) ==
LOC: ER 13:52 → 2ND 07-05 07:01
PROVIDERS: Admitting Provider Emergency Medicine; Emergency Provider Family Medicine; PCP Nurse Practitioner Family; Visit Provider Emergency Medicine
DX: J20.9 Acute bronchitis, unspecified (principal); F17.210 Nicotine dependence, cigarettes, uncomplicated; Z79.3 Long term (current) use of hormonal contraceptives; Z79.899 Other long term (current) drug therapy; Z88.1 Allergy status to other antibiotic agents; Z88.0 Allergy status to penicillin; Z82.49 Family history of ischemic heart disease and other diseases of the circulatory system
CPT/HCPCS: 36415; 71046; 80053; 83605; 85025; 87040; 87486; 87581; 87633; 87798; 96365; 99284; G0378; J1956

== ENCOUNTER 2017-07-15 13:00 | Outpatient (RCR) | payer BC, SELFPAY | END 2017-07-15 13:01 | disposition home or self-care (01) | LOC: PT 13:00 | PROVIDERS: PCP Nurse Practitioner Family; Visit Provider Nurse Practitioner Family | DX: M25.561 Pain in right knee (principal) | CPT/HCPCS: 97010; 97014; 97033; 97110; G0283 ==

== ENCOUNTER → 2018-03-10 14:51 | Outpatient (CLI) | payer BC, SELFPAY ==
--- NOTE | 2018-03-10 14:53 | US_ITS ---
US transvaginal HISTORY: Heavy vaginal bleeding ITS.REASON: US T/V- Heavy Bleeding ORDERING PHYSICIAN: Young Lopez MD PATIENT AGE: 27 years Comparison: None Last menstrual period: 10/12/2017 FINDINGS: The uterus is 7.3 x 3.1 x 4.2 cm with a combined endometrial thickness of 2 mm. Small echogenic focus is noted in the endometrial area on the sagittal images but not duplicated on the transverse images. The right ovary is 2.2 x 1.8 cm. The left ovary is 2.6 x 1.4 cm. Small bilateral ovarian cysts are noted. No large dominant cyst evident. No cul-de-sac fluid. IMPRESSION: Unremarkable pelvic ultrasound.
== END ==
PROVIDERS: PCP Nurse Practitioner Family; Visit Provider Nurse Practitioner Obstetrics & Gynecology
DX: N92.0 Excessive and frequent menstruation with regular cycle (principal)
CPT/HCPCS: 76830

== ENCOUNTER → 2018-03-25 09:56 | Outpatient (CLI) | payer BC, SELFPAY ==
[2018-03-25 11:01] LABS: Basophils % 0.5 % (0.1-2.0); Eosinophils # 0.5 K/mm3 (0.0-0.4); Eosinophils % 6.4 % (0.1-12.0); Hematocrit 44.6 % (37.0-47.0); Hemoglobin 14.7 g/dL (12.2-16.2); Lymphocytes # 2.2 K/mm3 (0.7-4.5); Lymphocytes % 26.1 % (10-50); Mean Corpuscular Hemoglobin 28.6 pg (27.0-31.2); Mean Corpuscular Volume 86.5 fl (81-99); Monocytes # 0.5 K/mm3 (0.1-1.0); Monocytes % 6.2 % (1.7-9.3); Neutrophils # 5.1 K/mm3 (1.8-7.8); Neutrophils % 60.8 % (37.0-80.0); Platelet Count 278 K/mm3 (142-424); Red Blood Count 5.15 M/mm3 (4.20-5.40); Red Cell Distribution Width 12.5 % (11.5-17.5); White Blood Count 8.4 K/mm3 (4.8-10.8)
[2018-03-25 11:46] LABS: Anion Gap 12.9 mEq/L (5-15); Blood Urea Nitrogen 9 mg/dL (7-18); Calcium 8.9 mg/dL (8.5-10.1); Carbon Dioxide 28 mmol/L (21.0-32.0); Chloride 105 mmol/L (98-107); Creatinine,Serum 0.85 mg/dL (0.55-1.02); Estimated Glomerular Filt Rate 80 ml/min (>60); GFR (African American) 97 ML/MIN (>60); Glucose 83 mg/dL (74-106); Potassium 3.9 mmoL/L (3.5-5.1); Sodium 142 mmol/L (136-145)
[2018-03-25 11:48] LABS: HCG Qualitative, Serum Negative (Negative)
== END ==
PROVIDERS: PCP Nurse Practitioner Family; Visit Provider Nurse Practitioner Obstetrics & Gynecology
DX: N93.9 Abnormal uterine and vaginal bleeding, unspecified (principal)
CPT/HCPCS: 36415; 80048; 84703; 85025

== ENCOUNTER → 2018-10-20 14:53 | Outpatient (CLI) | payer BC, SELFPAY ==
[2018-10-20 15:13] LABS: Basophils % 0.5 % (0.1-2.0); Eosinophils # 0.5 K/mm3 (0.0-0.4); Eosinophils % 5.7 % (0.1-12.0); Hematocrit 44.7 % (37.0-47.0); Hemoglobin 14.5 g/dL (12.2-16.2); Lymphocytes # 2.3 K/mm3 (0.7-4.5); Lymphocytes % 28.5 % (10-50); Mean Corpuscular HGB Conc 32.4 g/dL (31.8-35.4); Mean Corpuscular Hemoglobin 27.5 pg (27.0-31.2); Mean Corpuscular Volume 84.8 fl (81-99); Mean Platelet Volume 7.1 fl (7.4-10.4); Monocytes # 0.4 K/mm3 (0.1-1.0); Monocytes % 4.5 % (1.7-9.3); Neutrophils # 4.9 K/mm3 (1.8-7.8); Neutrophils % 60.7 % (37.0-80.0); Platelet Count 294 K/mm3 (142-424); Red Blood Count 5.27 M/mm3 (4.20-5.40); Red Cell Distribution Width 12.1 % (11.5-17.5); White Blood Count 8.1 K/mm3 (4.8-10.8)
[2018-10-20 15:46] LABS: HCG Qualitative, Serum Negative (Negative)
[2018-10-20 15:48] LABS: Anion Gap 14.7 mEq/L (5-15); Blood Urea Nitrogen 10 mg/dL (7-18); Calcium 9.2 mg/dL (8.5-10.1); Carbon Dioxide 26 mmol/L (21.0-32.0); Chloride 105 mmol/L (98-107); Creatinine,Serum 0.77 mg/dL (0.55-1.02); Estimated Glomerular Filt Rate 89 ml/min (>60); GFR (African American) 108 ML/MIN (>60); Glucose 98 mg/dL (74-106); Potassium 3.7 mmoL/L (3.5-5.1); Sodium 142 mmol/L (136-145)
== END ==
PROVIDERS: Visit Provider Nurse Practitioner Obstetrics & Gynecology
DX: Z01.818 Encounter for other preprocedural examination (principal); N92.0 Excessive and frequent menstruation with regular cycle
CPT/HCPCS: 36415; 80048; 84703; 85025

== ENCOUNTER → 2019-05-14 16:19 | Outpatient (CLI) | payer BC, SELFPAY ==
[2019-05-14 16:45] LABS: Basophils # 0.1 K/mm3 (0-0.2); Basophils % 0.6 % (0.1-2.0); Eosinophils # 0.2 K/mm3 (0.0-0.4); Eosinophils % 1.8 % (0.1-12.0); Hematocrit 46.3 % (37.0-47.0); Hemoglobin 15.4 g/dL (12.2-16.2); Lymphocytes # 2.1 K/mm3 (0.7-4.5); Lymphocytes % 19.9 % (10-50); Mean Corpuscular HGB Conc 33.2 g/dL (31.8-35.4); Mean Corpuscular Volume 87.4 fl (81-99); Monocytes # 0.5 K/mm3 (0.1-1.0); Monocytes % 4.9 % (1.7-9.3); Neutrophils # 7.5 K/mm3 (1.8-7.8); Neutrophils % 72.7 % (37.0-80.0); Platelet Count 337 K/mm3 (142-424); Red Cell Distribution Width 12.5 % (11.5-17.5); White Blood Count 10.3 K/mm3 (4.8-10.8)
[2019-05-14 17:31] LABS: HCG Qualitative, Serum Negative (Negative)
[2019-05-14 17:49] LABS: Alanine Aminotransferase 27 U/L (12-78); Albumin Level 4.1 gm/dL (3.4-5.0); Albumin/Globulin Ratio 1.4 (1.1-1.8); Alkaline Phosphatase 97 U/L (46-116); Anion Gap 14.3 mEq/L (5-15); Aspartate Amino Transferase 16 U/L (15-37); Bilirubin,Total 0.3 mg/dL (0.2-1.0); Blood Urea Nitrogen 7 mg/dL (7-18); Calcium 9.2 mg/dL (8.5-10.1); Carbon Dioxide 27 mmol/L (21.0-32.0); Chloride 105 mmol/L (98-107); Chol/HDL Ratio 4.4 (1-3.5); Cholesterol 217 mg/dL (140-200); Creatinine,Serum 0.75 mg/dL (0.55-1.02); Estimated Glomerular Filt Rate 92 ml/min (>60); GFR (African American) 111 ML/MIN (>60); Glucose 106 mg/dL (74-106); HDL Cholesterol 49 mg/dL (29-89); LDL Cholesterol 141 mg/dL (0-130); Potassium 4.3 mmoL/L (3.5-5.1); Sodium 142 mmol/L (136-145); T4 (Thyroxine) 8.6 ug/dl (4.7-13.3); Thyroid Stimulating Hormone 0.93 uIU/ml (0.358-3.740); Total Protein,Serum 7.1 gm/dL (6.4-8.2); Triglycerides 137 mg/dL (30-200); VLDL Cholesterol 27 mg/dL (0-40)
[2019-05-17 17:10] LABS: Vitamin D 25 Hydroxy 24.3 ng/mL (30.0-100.0)
== END ==
PROVIDERS: Visit Provider Nurse Practitioner Family
DX: R51 Headache (principal); R53.83 Other fatigue; E55.9 Vitamin D deficiency, unspecified
CPT/HCPCS: 80053; 80061; 82652; 84436; 84443; 84703; 85025

== ENCOUNTER → 2019-05-27 13:14 | Outpatient (CLI) | payer BC, SELFPAY ==
--- NOTE | 2019-05-27 13:14 | CT_ITS ---
PROCEDURE: CT HEAD/BRAIN WO CON CLINICAL INDICATION: headaches COMPARISON: SINUS CT SINUS (MAX-FACIAL W/O CONT) from 02/13/2014 TECHNIQUE: Axial images obtained. All CT scans at the facility use one or more dose reduction, viz: automated exposure control, ma/kV adjustment per patient size (including targeted exams where dose is matched to indication, i.e. head), or iterative reconstruction technique. FINDINGS: No midline shift, mass effect, intracranial hemorrhage, hydrocephalus, or extra-axial fluid collection is evident. The calvarium has an unremarkable appearance. No mastoid effusion. There are foci of mucosal thickening of sinusitis in the bilateral sphenoid and ethmoid sinuses. There is no air-fluid level. IMPRESSION: No acute intracranial finding mild sinusitis. Dictated by: Jeronimo Lau 05/27/2019 13:29 Electronically signed by Jeronimo Lau in [place] 05/27/2019 13:29
== END ==
PROVIDERS: PCP Nurse Practitioner Family; Visit Provider Nurse Practitioner Family
DX: R51 Headache (principal)
CPT/HCPCS: 70450

== ENCOUNTER → 2019-07-24 10:38 | Outpatient (CLI) | payer BC, SELFPAY ==
[2019-07-24 11:36] LABS: Basophils # 0.2 K/mm3 (0-0.2); Basophils % 1.5 % (0.1-2.0); Eosinophils # 0.6 K/mm3 (0.0-0.4); Eosinophils % 5.5 % (0.1-12.0); Hematocrit 47.5 % (37.0-47.0); Hemoglobin 15.7 g/dL (12.2-16.2); Lymphocytes # 2.1 K/mm3 (0.7-4.5); Lymphocytes % 20.5 % (10-50); Mean Corpuscular Hemoglobin 29.2 pg (27.0-31.2); Mean Corpuscular Volume 88.7 fl (81-99); Monocytes # 0.6 K/mm3 (0.1-1.0); Monocytes % 5.7 % (1.7-9.3); Neutrophils % 66.9 % (37.0-80.0); Platelet Count 307 K/mm3 (142-424); Red Blood Count 5.35 M/mm3 (4.20-5.40); White Blood Count 10.5 K/mm3 (4.8-10.8)
[2019-07-24 12:55] LABS: Alanine Aminotransferase 23 U/L (12-78); Albumin Level 4.6 g/dl (3.5-5.0); Albumin/Globulin Ratio 1.8 (1.1-1.8); Alkaline Phosphatase 76 U/L (38-126); Anion Gap 13.3 mEq/L (5-15); Aspartate Amino Transferase 26 U/L (14-36); Bilirubin,Total 0.3 mg/dl (0.2-1.3); Blood Urea Nitrogen 13 mg/dl (7-17); Calcium 9.8 mg/dl (8.4-10.2); Carbon Dioxide 26 mmol/L (22.0-30.0); Chloride 102 mmol/L (98-107); Chol/HDL Ratio 3.7 (1-3.5); Cholesterol 176 mg/dl (140-200); Estimated Glomerular Filt Rate 100 ml/min (>60); GFR (African American) 121 ML/MIN (>60); Globulin 2.6 g/dL (1.3-3.2); Glucose 82 mg/dl (74-100); HDL Cholesterol 48 mg/dl (40-60); Potassium 4.3 mmoL/L (3.5-5.1); Sodium 137 mmol/L (136-145); Total Protein,Serum 7.2 g/dl (6.3-8.2); Triglycerides 141 mg/dl (30-150); VLDL Cholesterol 28 mg/dL (0-40)
[2019-07-24 13:12] LABS: T4 (Thyroxine) 11.2 ug/dl (5.53-11.0)
[2019-07-26 11:06] LABS: Vitamin D 25 Hydroxy 43.5 ng/mL (30.0-100.0)
== END ==
PROVIDERS: Visit Provider Nurse Practitioner Family
DX: F41.9 Anxiety disorder, unspecified (principal); E78.00 Pure hypercholesterolemia, unspecified; R79.89 Other specified abnormal findings of blood chemistry
CPT/HCPCS: 36415; 80053; 80061; 82652; 84436; 84443; 85025

== ENCOUNTER → 2019-08-31 14:05 | Outpatient (CLI) | payer BC, SELFPAY | PROVIDERS: PCP Nurse Practitioner Family; Visit Provider Nurse Practitioner Family | DX: G47.9 Sleep disorder, unspecified (principal); G47.8 Other sleep disorders; G47.00 Insomnia, unspecified; G43.019 Migraine without aura, intractable, without status migrainosus; R53.83 Other fatigue | CPT/HCPCS: 95806 ==

== ENCOUNTER → 2019-10-07 08:29 | Outpatient (CLI) | payer BC, SELFPAY ==
--- NOTE | 2019-10-07 08:31 | MR_ITS ---
PROCEDURE: MR HEAD/BRAIN WO CON CLINICAL INDICATION: migraine CONSTANT MIGRAINE HEADACHE [id number]. DIZZINESS. PRIOR CT 05-27-19 COMPARISON: CT HEAD/BRAIN WO CON from 05/27/2019 TECHNIQUE: Routine multiplanar multi echo sequences are performed without gadolinium enhancement. FINDINGS: No midline shift, mass effect, intracranial hemorrhage, or hydrocephalus. No evidence of acute infarction. The cerebellopontine angles, cerebellum and brainstem have an unremarkable appearance. The pituitary, optic chiasm, corpus callosum, and craniocervical junction have an unremarkable appearance. There are at least 2 small areas of slight increased FLAIR signal in the subcortical region of the right parietal lobe. These may represent areas of partial volume averaging artifact from the cortex best seen on series 8, image 18 and series 11, image 14. There is mild mucosal thickening of the maxillary and ethmoid sinuses. IMPRESSION: 1. No definite acute intracranial findings. 2. Questionable T2 white matter hyperintensities in the right parietal lobe. Consider 3 month follow-up without and with contrast to confirm stability 3. Mild sinus disease Dictated by: Darvin Jimenez MD 10/08/2019 08:51 Electronically signed by Darvin Jimenez MD in [place] 10/08/2019 08:51
== END ==
PROVIDERS: PCP Nurse Practitioner Family; Visit Provider Specialist
DX: G43.919 Migraine, unspecified, intractable, without status migrainosus (principal)
CPT/HCPCS: 70551

== ENCOUNTER 2019-12-14 15:30 | Outpatient (RCR) | payer BC, SELFPAY ==
--- NOTE | 2019-11-04 08:57 | HMH.PTOPEV ---
PT Outpatient Evaluation Rehab PT Outpatient Evaluation Start: 11/04/19 08:13 Freq: Status: Active Protocol: Document 11/04/19 08:44 UMAIR (Rec: 11/04/19 08:56 UMAIR [id number]) Electronically Signed By Rafael Jackson, PT 11/04/19 08:44 Outpatient Therapy Subjective History Subjective History Patient is a 29 year old female presenting to outpatient PT with reports of chronic cervical spine pain starting approximatley 10 years ago of insidious onset. She reports onset of migranes 04/2019. Migranes are cervicogenic in nature. No radicular symptoms to report. No other comorbidities to report. Chief Complaint Pain Symptom Type Ache,Numbness,Tingling Symptoms Relieved By Rest/Positioning,Prescription Meds Symptoms Aggravated By Physical Activity,Lifting Prior Functional Limitations None Current Functional Limitations Reaching,Lifting,Housework, Desk Work/Reading,Driving, Sleeping,Recreation Activity, Walking,Bending/Stooping Symptom Description Constant but Variable Level of pain today (0-10) 5 Pain scale - at its best (0-10) 9 Pain scale - at its worst (0-10) 4 Cervical Eval Palpation Cervical Muscles R Cervical Paraspinal,L Cervical Paraspinal,R Suboccipital,L Suboccipital,R CT Junction,L CT Junction,R Upper Trapezius,L Upper Trapezius Cervical/Thoracic Palpation Findings Tenderness Posture Head/C-Spine Posture Sitting Position C-Spine Flattened Head/C-Spine Posture Standing Position C-Spine Flattened Flexibility Deficits Upper Trapezius Muscle Length (R) Moderate Tightness,(L) Moderate Tightness Levaetor Scapulae Muscle Length (R) Moderate Tightness,(L) Moderate Tightness Pectoralis Minor Muscle Length (R) Moderate Tightness,(L) Moderate Tightness Passive Joint Mobility Cervical PIVM WNL: R OA L OA R AA L AA R C2/3 L C2/3 R C3/4 L C3/4
--- NOTE | 2019-12-14 17:17 | HMH.RHREAS ---
Rehab Reassessment Rehab OP Re-assessment Start: 12/14/19 17:05 Freq: Status: Active Protocol: Document 12/14/19 17:06 UMAIR (Rec: 12/14/19 17:17 UMAIR [id number]) Electronically Signed By Rafael Jackson, PT 12/14/19 17:06 Rehab Re-assessment Subjective Subjective Patient reports no significant improvement since start of care. Objective Objective Notes AROM: WNL MMT: WNL Neuro: patient reports dec sensation B C6/7/8 dermatomes Special tests: Spurlings negative. Pain: 8/10 currently; 9/10 at worst over past week Assessment Progress Assessment No Progress Assessment Notes Patient has been seen for 8 visits to date over 39 days. Two weeks since last visit. Patient reports minimal intermittent relief with persistent exacerbation. Compliance noted with HEP. Persistent functional limtations with all standing, walking and desk work activities. Patient goals met None Goals Not Met All Revised Goals NA Plan Plan Suggest continue with POC and refer to MD for further imaging or possible injections . Frequency of Therapy 2x/week Duration of therapy 4 weeks Time and Billing Re-Eval Time 15 Re-Eval Billing Units 1 PHYSICIAN CERTIFICATION: I certify the specified therapy services for Marisela Momin are required, authorized, and reviewed every 30 days.
== END 2019-12-14 15:35 | disposition home or self-care (01) ==
LOC: PT 15:30
PROVIDERS: PCP Nurse Practitioner Family; Visit Provider Nurse Practitioner Family
DX: G43.919 Migraine, unspecified, intractable, without status migrainosus; M54.2 Cervicalgia
CPT/HCPCS: 20560; 97010; 97012; 97014; 97035; 97110; 97140; 97163; 97164; G0283

== ENCOUNTER → 2020-01-03 08:33 | Outpatient (CLI) | payer BC, SELFPAY ==
[2020-01-03 09:15] LABS: Chloride 104 mmol/L (98-107); Potassium 3.5 mmoL/L (3.5-5.1); Sodium 143 mmol/L (136-145)
[2020-01-03 09:18] LABS: Anion Gap 14.5 mEq/L (5-15); Blood Urea Nitrogen 9 mg/dl (7-17); Calcium 9.5 mg/dl (8.4-10.2); Carbon Dioxide 28 mmol/L (22.0-30.0); Estimated Glomerular Filt Rate 99 ml/min (>60); GFR (African American) 120 ML/MIN (>60); Glucose 98 mg/dl (74-100)
--- NOTE | 2020-01-03 10:01 | MR_ITS ---
PROCEDURE: MR CERVICAL SPINE WO CON CLINICAL INDICATION: neck pain NECK PAIN AND MIGRAINE HEADACHE. BILATERAL ARM PINS AND NEEDLES. SYMPTOMS X9 MONTHS. NO PRIOR. COMPARISON: No exams were available for comparison TECHNIQUE: Standard multiplanar multiecho sequences are performed without contrast. 3-D MIP and myelographic images are also rendered and reviewed FINDINGS: There is normal alignment. No fracture or dislocation evident. No extruded herniated disc or canal stenosis.. No significant degenerative change. The spinal cord has an unremarkable appearance. IMPRESSION: Negative MRI of the cervical spine Dictated by: Darvin Jimenez MD 01/04/2020 10:06 Darvin Jimenez MD in [place] 01/04/2020 10:06
--- NOTE | 2020-01-03 10:09 | MR_ITS ---
PROCEDURE: MR HEAD/BRAIN WO/W CON CLINICAL INDICATION: eval re: abnormal MRI Brain MIGRAINE HEADACHE. HEADACHE STARTS AT BASE OF HEAD AND GOES TO LT FRONTAL SIDE OF HEAD. SYMPTOMS [id number]. NO INJURY. DIZZINESS AND BLURRED VISION. COMPARISON: No exams were available for comparison TECHNIQUE: Routine multiplanar multi echo sequences are performed without gadolinium enhancement. FINDINGS: No midline shift, mass effect, intracranial hemorrhage, hydrocephalus, or acute infarction. There is a small T2 white matter hyperintensity in the right parietal lobe the in the subcortical region and in the left parietal lobe medially. These areas do not demonstrate contrast enhancement or restricted diffusion. These are nonspecific. No enhancing lesions are evident. The pituitary, optic chiasm, corpus callosum, and craniocervical junction have an unremarkable appearance. No mastoid effusion or sinus air-fluid level. There is mild mucosal thickening in the left ethmoid sinus and bilateral maxillary sinuses and there is mild rightward nasal septal deviation. Small amount fluid is present at the medial aspect of the left TMJ. IMPRESSION: 1. No acute intracranial findings. 2. There are 2 small T2 white matter hyperintensities which are nonspecific and are of questionable clinical concern. This could be seen with migraine headache or small gliotic foci. These are not typical appearance for demyelinating process. 3. Minimal amount of fluid in the left TMJ which may be seen with arthritic change. 4. Rightward nasal septal deviation with minimal mucosal thickening of the ethmoid sinus on the left and of the maxillary sinuses. Dictated by: Darvin Jimenez MD 01/04/2020 10:00 Darvin Jimenez MD in [facility] 01/04/2020 10:00
[2020-01-03 12:41] LABS: Thyroid Stimulating Hormone 1.82 uIU/mL (0.465-4.68)
[2020-01-03 13:16] LABS: Vitamin B12 687 pg/mL (239-931)
[2020-01-03 13:22] LABS: Folate 5.61 ng/mL
== END ==
PROVIDERS: Nurse Practitioner Family; PCP Nurse Practitioner Family; Visit Provider Specialist
DX: M54.2 Cervicalgia (principal); R53.83 Other fatigue; R93.0 Abnormal findings on diagnostic imaging of skull and head, not elsewhere classified
CPT/HCPCS: 36415; 70553; 72141; 76376; 80048; 82607; 82746; 84443; A9576

== ENCOUNTER → 2020-01-11 13:32 | Outpatient (CLI) | payer BC, SELFPAY ==
[2020-01-11 13:41] LABS: Basophils # 0.1 K/mm3 (0-0.2); Basophils % 0.8 % (0.1-2.0); Eosinophils # 0.4 K/mm3 (0.0-0.4); Eosinophils % 4.7 % (0.1-12.0); Hematocrit 45.9 % (37.0-47.0); Hemoglobin 14.9 g/dL (12.2-16.2); Lymphocytes # 1.9 K/mm3 (0.7-4.5); Lymphocytes % 20.3 % (10-50); Mean Corpuscular HGB Conc 32.4 g/dL (31.8-35.4); Mean Corpuscular Hemoglobin 28.6 pg (27.0-31.2); Mean Corpuscular Volume 88.1 fl (81-99); Mean Platelet Volume 7.8 fl (7.4-10.4); Monocytes # 0.5 K/mm3 (0.1-1.0); Monocytes % 5.4 % (1.7-9.3); Neutrophils # 6.4 K/mm3 (1.8-7.8); Neutrophils % 68.8 % (37.0-80.0); Platelet Count 267 K/mm3 (142-424); Red Blood Count 5.21 M/mm3 (4.20-5.40); Red Cell Distribution Width 12.3 % (11.5-17.5); White Blood Count 9.3 K/mm3 (4.8-10.8)
[2020-01-11 14:31] LABS: Erythrocyte Sedimentation Rate 6 mm/hr (0-20)
[2020-01-11 16:03] LABS: Alanine Aminotransferase 15 U/L (12-78); Albumin Level 4.4 g/dl (3.5-5.0); Albumin/Globulin Ratio 1.6 (1.1-1.8); Alkaline Phosphatase 102 U/L (38-126); Anion Gap 15.1 mEq/L (5-15); Aspartate Amino Transferase 25 U/L (14-36); Bilirubin,Total 0.3 mg/dl (0.2-1.3); Blood Urea Nitrogen 9 mg/dl (7-17); Calcium 9.3 mg/dl (8.4-10.2); Carbon Dioxide 24 mmol/L (22.0-30.0); Chloride 106 mmol/L (98-107); Estimated Glomerular Filt Rate 118 ml/min (>60); GFR (African American) 143 ML/MIN (>60); Globulin 2.7 g/dL (1.3-3.2); Glucose 89 mg/dl (74-100); Potassium 4.1 mmoL/L (3.5-5.1); Sodium 141 mmol/L (136-145); Total Protein,Serum 7.1 g/dl (6.3-8.2)
== END ==
PROVIDERS: Visit Provider Emergency Medicine
DX: R10.2 Pelvic and perineal pain (principal); R53.83 Other fatigue
CPT/HCPCS: 80053; 85025; 85651

== ENCOUNTER → 2020-03-28 18:34 | Outpatient (CLI) | payer BC, SELFPAY | PROVIDERS: PCP Nurse Practitioner Family; Visit Provider Nurse Practitioner Psychiatric/Mental Health | DX: Z03.818 Encounter for observation for suspected exposure to other biological agents ruled out (principal) | CPT/HCPCS: U0003; U0004 ==

== ENCOUNTER → 2020-09-21 10:48 | Outpatient (CLI) | payer BC, SELFPAY ==
[2020-09-21 11:25] LABS: Basophils # 0.1 K/mm3 (0-0.2); Basophils % 0.7 % (0.1-2.0); Eosinophils # 0.5 K/mm3 (0.0-0.4); Eosinophils % 4.7 % (0.1-12.0); Hematocrit 46.6 % (37.0-47.0); Hemoglobin 15.2 g/dL (12.2-16.2); Lymphocytes # 2.3 K/mm3 (0.7-4.5); Lymphocytes % 22.2 % (10-50); Mean Corpuscular HGB Conc 32.5 g/dL (31.8-35.4); Mean Corpuscular Hemoglobin 28.7 pg (27.0-31.2); Mean Corpuscular Volume 88.1 fl (81-99); Mean Platelet Volume 7.6 fl (7.4-10.4); Monocytes # 0.6 K/mm3 (0.1-1.0); Monocytes % 6.1 % (1.7-9.3); Neutrophils # 6.8 K/mm3 (1.8-7.8); Neutrophils % 66.3 % (37.0-80.0); Platelet Count 280 K/mm3 (142-424); Red Blood Count 5.29 M/mm3 (4.20-5.40); Red Cell Distribution Width 12.3 % (11.5-17.5); White Blood Count 10.3 K/mm3 (4.8-10.8)
[2020-09-21 11:54] LABS: Chloride 102 mmol/L (98-107); Potassium 3.9 mmoL/L (3.5-5.1); Sodium 141 mmol/L (136-145)
[2020-09-21 11:56] LABS: Blood Urea Nitrogen 9 mg/dl (7-17); Estimated Glomerular Filt Rate 117 ml/min (>60); GFR (African American) 142 ML/MIN (>60)
[2020-09-21 11:57] LABS: Alanine Aminotransferase 14 U/L (12-78); Albumin/Globulin Ratio 1.9 (1.1-1.8); Alkaline Phosphatase 99 U/L (38-126); Anion Gap 16.9 mEq/L (5-15); Aspartate Amino Transferase 26 U/L (14-36); Bilirubin,Total 0.3 mg/dl (0.2-1.3); Calcium 9.7 mg/dl (8.4-10.2); Carbon Dioxide 26 mmol/L (22.0-30.0); Globulin 2.6 g/dL (1.3-3.2); Glucose 80 mg/dl (74-100); Iron 80 ug/dL (37-170); Total Protein,Serum 7.6 g/dl (6.3-8.2)
[2020-09-21 12:07] LABS: Total Iron Binding Capacity 381 ug/dL (265-497)
[2020-09-21 12:14] LABS: Triiodothryronine (T3) Uptake 27 % (23.5-40.5)
[2020-09-21 12:15] LABS: Free Thyroxine Index 2.5 ug/dL (5.93-13.13); T4 (Thyroxine) 9.1 ug/dl (5.53-11.0)
[2020-09-21 12:28] LABS: Thyroid Stimulating Hormone 1.62 uIU/mL (0.465-4.68)
[2020-09-21 13:25] LABS: Vitamin B12 484 pg/mL (239-931)
[2020-09-22 09:52] LABS: FSH 8.8 mIU/mL (.); Progesterone 1.4 ng/mL (.)
[2020-09-26 00:04] LABS: Testosterone,Free 2.6 pg/mL (0.0-4.2)
[2020-09-26 21:44] LABS: 1,25 Dihydroxy Vitamin D 14 pg/mL (.); 1,25-Dihydroxy, Vitamin D-2 <10 pg/mL (.); 1,25-Dihydroxy, Vitamin D-3 14 pg/mL (.)
[2020-09-30 04:04] LABS: Estrogen 211 pg/mL (.)
== END ==
PROVIDERS: Visit Provider Nurse Practitioner Psychiatric/Mental Health
DX: Z00.00 Encounter for general adult medical examination without abnormal findings (principal); R53.83 Other fatigue; Z79.899 Other long term (current) drug therapy
CPT/HCPCS: 36415; 80053; 82607; 82652; 82672; 83001; 83036; 83540; 83550; 84144; 84402; 84403; 84436; 84443; 84479; 85025

== ENCOUNTER → 2020-10-02 17:12 | Outpatient (CLI) | payer BC, SELFPAY ==
[2020-10-05 22:08] LABS: Neisseria gonorrhoeae, NAA Negative (Negative)
== END ==
PROVIDERS: Visit Provider Physician Assistant
DX: R10.2 Pelvic and perineal pain (principal)
CPT/HCPCS: 87086; 87491; 87591

== ENCOUNTER → 2021-01-05 11:36 | Outpatient (CLI) | payer BC, SELFPAY | PROVIDERS: PCP Physician Assistant; Visit Provider Internal Medicine Cardiovascular Disease | DX: R06.00 Dyspnea, unspecified (principal); R07.89 Other chest pain; R42 Dizziness and giddiness; R00.2 Palpitations; F17.200 Nicotine dependence, unspecified, uncomplicated | CPT/HCPCS: 93270 ==

== ENCOUNTER → 2021-01-11 09:17 | Outpatient (CLI) | payer BC, SELFPAY ==
--- NOTE | 2021-01-11 | CA_ITS ---
APPROVED REPORT Exam: Exercise Treadmill Technologist: Joycelyn Jones Ht: 5 ft 9 in Wt: 142 lbs BSA: 1.79 m2 HR: 95 bpm BP: 107/95 mmHg Rhythm: NSR Indications: Chest pain PALPITATIONS Medical History Medical History: Smoking Medications: Lidocaine,,,,, Gabapentin,,,,, Diazepam,,,,, Tramadol,,,,, BuPROPION,,,,, FluTICASONE,,,,, DiPHENHYDRAMINE,,,,, CHOLECALCIFEROL,,,,, ONdanESETRON,,,,, Allergies: ADHESIVE TAPE, PENICILLIN, SILK TAPE Cardiac Risk Factors: FHX of CAD, Smoking Stress Test Details Test: Exercise stress testing was performed using a Lux protocol. HR Resting HR: 93 bpm Max Heart Rate (APMHR): 190.930507 bpm Max HR Achieved: 182 bpm Target HR (85% APMHR): 161.264571 bpm % of APMHR: 95.79 Recovery HR: 110 bpm BP Resting BP: 107/75 mmHg Max BP: 154/76 mmHg Recovery BP: 127.0/81.0 mmHg ECG Resting ECG: NSR Clinical Exercise duration: 10:01 min Highest Stage Achieved: Exercise capacity: 12.8 METs Stress ECG Conclusion EXERCISED 10:01 ON LUX PROTOCOL. MAX HR 182. % OF PM 96%. MAX BP 154/76. METS 12.8. TEST STOPPED DUE TO SOA, FATIGUE. MILD SHARP FLEETING CP AT PEAK EXERCISE. RARE PVC. NORMAL ST RESPONSE TO EXERCISE. NOMRAL STRESS EKGS WITH FLEETING ATYPICAL CP. REST AND STRESS ECHO IMAGES REPORTED GIGI. Test Summary RECOVERY 05:00 0.0 0.0 115 . 120/ 89 . . REST . . . . . . . Standing REST 01:17 0.0 0.0 93 . 107/ 75 . . Stage 1 01:00 10.0 1.7 112 . . . . Stage 1 02:00 10.0 1.7 122 . . . . Stage 1 03:00 10.0 1.7 126 . 128/ 78 . . Stage 2 01:00 12.0 2.5 130 . . . . Stage 2 02:00 12.0 2.5 130 . . . . Stage 2 03:00 12.0 2.5 131 . 140/ 78 . . Stage 3 01:00 14.0 3.4 139 . . . . Stage 3 02:00 14.0 3.4 152 . . . . Stage 3 03:00 14.0 3.4 157 . 154/ 76 . . Stage 4 01:00 16.0 4.2 179 . . . . Stage 4 01:01 16.0 4.2 179 . . . Stop exercise at 10:01 RECOVERY . . . . . . . Protocol changed to Manual Treadmill RECOVERY 01:00 0.0 0.0 144 . . . . RECOVERY 02:00 0.0 0.0 124 . . . . RECOVERY 03:00 0.0 0.0 129 . . . . RECOVERY 04:00 0.0 0.0 113 . 120/ 89 . . RECOVERY 05:00 0.0 0.0 115 . 120/ 89 . . RECOVERY 05:55 0.0 0.0 114 . 127/ 81 . . Electronically signed by : Prabhjot Robb MD 01/11/2021 14:47:21
--- NOTE | 2021-01-11 09:17 | CA_ITS ---
APPROVED REPORT EXAM: Comprehensive 2D, Doppler, and color-flow Echocardiogram Architecture Consultant: Lyn Concepcion RVT Ht: 5 ft 9 in Wt: 143lbs BSA: 1.79 BP: 134/65 mmHg Indications: CP,TACHYCARDIA,PALPS,SOA Stress Test Details HR Max Heart Rate (APMHR): 190.736090 bpm Target HR (85% APMHR): 161.699161 bpm BP ECG Conclusion 1. Patient exercised on Lux protocol for 10 minutes and 1 second, achieved 12.8 mets of workload on treadmill, the blood pressure response to exercise was adequate, the EKG was negative for ischemia. 2. The resting echocardiogram showed normal left ventricular size and function with no regional wall motion abnormality, with exercise there is increase in contractility of all the segments of the myocardium with hyperdynamic left ventricular systolic response, no obvious regional wall motion abnormality to suggest underlying ischemic heart disease. 3. Normal exercise stress echo. Electronically signed by : Prabhjot Robb MD 01/11/2021 14:48:37
== END ==
PROVIDERS: PCP Physician Assistant; Visit Provider Internal Medicine Cardiovascular Disease
DX: R07.89 Other chest pain (principal); R00.2 Palpitations; R06.00 Dyspnea, unspecified; R42 Dizziness and giddiness; F17.200 Nicotine dependence, unspecified, uncomplicated
CPT/HCPCS: 93017; 93350

== ENCOUNTER → 2022-01-31 09:00 | Outpatient (CLI) | payer OTHER, BC, SELFPAY ==
[2022-01-31 14:41] LABS: Opiate Screen,Urine Negative ng/ml (<300); Phencyclidine Screen,Urine Negative ng/ml (<25)
[2022-01-31 14:44] LABS: Amphetamine/Metha Screen,Urine Negative ng/ml (<1000)
[2022-01-31 14:45] LABS: Barbiturates Screen,Urine Negative ng/ml (<200)
[2022-01-31 14:46] LABS: Benzodiazepines Screen,Urine Negative ng/ml (<200); Cannabinoid Screen,Urine Negative ng/ml (<50)
[2022-01-31 14:47] LABS: Cocaine Screen,Urine Negative ng/ml (<300)
[2022-01-31 14:48] LABS: Methadone Screen,Urine Negative ng/ml (<300)
== END ==
PROVIDERS: PCP Nurse Practitioner Family; Visit Provider Nurse Practitioner Family
DX: Z79.899 Other long term (current) drug therapy (principal)
CPT/HCPCS: 80305

== ENCOUNTER → 2022-04-04 12:46 | Outpatient (CLI) | payer OTHER, BC, SELFPAY ==
--- NOTE | 2022-04-04 12:46 | MR_ITS ---
FINAL REPORT CLINICAL HISTORY: Rt medial Knee pain, injury 2 weeks ago FINDINGS: Multiplanar MR imaging of the right knee was performed without contrast. The medial and lateral menisci are intact without evidence of meniscal tear. The anterior and posterior cruciate ligaments are intact. There is mild thickening of the proximal medial collateral ligament that may represent sequela of prior partial injury. The lateral collateral ligament is intact. There is distal patellar tendinitis. The quadriceps tendon is intact. There is no evidence of fracture. No focal abnormality is identified of the articular cartilage. A small joint effusion is seen. The musculature is intact. There is a small popliteal cyst. IMPRESSION: Mild thickening of the MCL may represent sequela of prior partial injury. Distal patellar tendinitis. Small joint effusion and small popliteal cyst. Reviewed, Interpreted and Dictated by Salty Garcia III, MD Transcribed by Lucas Cox Authenticated and [facility]
== END ==
PROVIDERS: PCP Nurse Practitioner Family; Visit Provider Nurse Practitioner Family
DX: S89.91XA Unspecified injury of right lower leg, initial encounter (principal); M25.561 Pain in right knee
CPT/HCPCS: 73721

== ENCOUNTER → 2022-04-26 09:17 | Outpatient (CLI) | payer OTHER, BC, SELFPAY ==
--- NOTE | 2022-04-26 09:32 | XR_ITS ---
FINAL REPORT CLINICAL HISTORY: MEDIAL KNEE PAIN ON RIGHT KNEE SINCE MAR 2022, SWELLING FINDINGS: AP, lateral and oblique views of the right knee were obtained. There is no prior exam for comparison. There is no acute osseous abnormality of the right knee. The joint space is preserved. The soft tissues are normal. There is no joint effusion. IMPRESSION: No acute osseous abnormality of the right knee. Reviewed, Interpreted and Dictated by Lisette Calderon MD Transcribed by Larissa Galvez Authenticated and [facility]
== END ==
PROVIDERS: PCP Nurse Practitioner Family; Visit Provider Orthopaedic Surgery
DX: M25.561 Pain in right knee (principal); S89.91XA Unspecified injury of right lower leg, initial encounter
CPT/HCPCS: 73562

== ENCOUNTER → 2022-06-27 12:23 | Outpatient (CLI) | payer OTHER, BC, SELFPAY ==
[2022-06-27 12:50] LABS: Basophils # 0.2 K/mm3 (0-0.2); Basophils % 1.8 % (0.1-2.0); Eosinophils # 0.6 K/mm3 (0.0-0.4); Hematocrit 46.8 % (37.0-47.0); Hemoglobin 15.1 g/dL (12.2-16.2); Lymphocytes # 2.4 K/mm3 (0.7-4.5); Lymphocytes % 27.7 % (10-50); Mean Corpuscular HGB Conc 32.3 g/dL (31.8-35.4); Mean Corpuscular Hemoglobin 28.6 pg (27.0-31.2); Mean Corpuscular Volume 88.5 fl (81-99); Mean Platelet Volume 7.6 fl (7.4-10.4); Monocytes # 0.5 K/mm3 (0.1-1.0); Monocytes % 5.4 % (1.7-9.3); Neutrophils % 58.1 % (37.0-80.0); Platelet Count 387 K/mm3 (142-424); Red Blood Count 5.28 M/mm3 (4.20-5.40); Red Cell Distribution Width 12.4 % (11.5-17.5); White Blood Count 8.7 K/mm3 (4.8-10.8)
[2022-06-27 13:36] LABS: Alanine Aminotransferase 16 U/L (12-78); Albumin Level 4.6 g/dl (3.5-5.0); Albumin/Globulin Ratio 2.1 (1.1-1.8); Alkaline Phosphatase 74 U/L (38-126); Anion Gap 9.6 mEq/L (5-15); Aspartate Amino Transferase 22 U/L (14-36); Bilirubin,Total 0.5 mg/dl (0.2-1.3); Blood Urea Nitrogen 8 mg/dl (7-17); Calcium 9.1 mg/dl (8.4-10.2); Carbon Dioxide 30 mmol/L (22.0-30.0); Chloride 101 mmol/L (98-107); Chol/HDL Ratio 4.5 (1-3.5); Cholesterol 181 mg/dl (140-200); Estimated Glomerular Filt Rate 117 ml/min (>60); GFR (African American) 141 ML/MIN (>60); Globulin 2.2 g/dL (1.3-3.2); Glucose 82 mg/dl (74-100); HDL Cholesterol 40 mg/dl (40-60); Potassium 3.6 mmoL/L (3.5-5.1); Sodium 137 mmol/L (136-145); Total Protein,Serum 6.8 g/dl (6.3-8.2); Triglycerides 136 mg/dl (30-150); VLDL Cholesterol 27 mg/dL (0-40)
[2022-06-27 13:47] LABS: Direct LDL Cholesterol 115.82 mg/dL (100-129)
[2022-06-27 13:53] LABS: 25-OH Vitamin D, Total 37.2 ng/mL (30-100)
[2022-06-27 14:07] LABS: Thyroid Stimulating Hormone 0.74 uIU/mL (0.465-4.68)
== END ==
LOC: LAB 12:23
PROVIDERS: PCP Nurse Practitioner Family; Visit Provider Nurse Practitioner Family
DX: R53.83 Other fatigue (principal); R00.0 Tachycardia, unspecified; F32.9 Major depressive disorder, single episode, unspecified; F41.9 Anxiety disorder, unspecified
CPT/HCPCS: 36415; 80053; 80061; 82306; 84443; 85025